=== PATIENT | female | born 1960 | race Hispanic/Latino ===

== ENCOUNTER → 2022-07-10 | Outpatient (CLI) | payer OTHER ==
[~2022-07-10] MED LIST: ASPI-556 PO; ATOR40TA71 PO; DAPA5TAB PO; GLIP5TAB11 PO; LEVO50TA11 PO; LISI2.5T13 PO; METF-445 PO; MULT-40 PO
== END | disposition home or self-care (01) ==
LOC: OIH 09:12
PROVIDERS: ATTEND Internal Medicine Cardiovascular Disease
DX: Z13.6 Encounter for screening for cardiovascular disorders (principal); I51.5 Myocardial degeneration
CPT/HCPCS: 75571